=== PATIENT | male | born 1950 | race Caucasian/White ===

== ENCOUNTER 2016-10-18 17:33 | Inpatient (IN) | payer BC, MEDICARE ==
[2016-10-18] VITALS (13 sets, daily range): BP systolic 101–149; BP diastolic 68–93; PULSE 87–140; RESP 17–18; TEMP 97.8; O2SAT 98–100
[~2016-10-18] VITALS: Ht 180.3 cm; Wt 85.8 kg
[2016-10-18] MEDS ORDERED: ADENOSINE IV SOLN 3 MG/ML 2 ML VIAL ONE (17:47)
[2016-10-18] MEDS ORDERED: DILTIAZEM HCL 25 MG/5 ML VIAL ONE (17:52)
[2016-10-18 18:04] LABS: BASOPHIL # 0.1 TH/MM3 (0-0.2); BASOPHIL % 1.3 % (0.0-2.0); EOSINOPHIL # 0.1 TH/MM3 (0-0.4); EOSINOPHIL % 0.7 % (0.0-4.0); HEMO FLAGS DIFF FINAL; LYMPH % 30.4 % (9.0-44.0); LYMPHOCYTE # 2.6 TH/MM3 (1.0-4.8); MEAN CORPUSCULAR HEMOGLOBIN 29.5 PG (27.0-34.0); MEAN CORPUSCULAR HGB CONC 33.1 % (32.0-36.0); MONO % 9.4 % (0.0-8.0); NEUT % 58.2 % (16.0-70.0); PLATELET COUNT 235 TH/MM3 (150-450); RED BLOOD COUNT 5.18 MIL/MM3 (4.50-5.90); RED CELL DISTRIBUTION WIDTH 12.7 % (11.6-17.2); WHITE BLOOD COUNT 8.6 TH/MM3 (4.0-11.0)
[2016-10-18] MEDS ORDERED: DILTIAZEM INJ 125 MG in SODIUM CHLORIDE 0.9% INJ 100 ML IV SCH (18:15)
[2016-10-18] MEDS ORDERED: DILTIAZEM HCL 25 MG/5 ML VIAL IV ONE ×2 (18:15→18:45)
[2016-10-18 18:22] LABS: POTASSIUM 3.6 MEQ/L (3.5-5.1)
[2016-10-18 18:25] LABS: BICARBONATE 27.3 MEQ/L (21.0-32.0)
[2016-10-18 18:27] LABS: PROTHROMBIN TIME - PATIENT 11.1 SEC (9.8-11.6)
[2016-10-18] MEDS ORDERED: LEVO100T5 PO (18:30)
[2016-10-18] MEDS ORDERED: ASPI1TAB69 PO (18:30)
[2016-10-18] MEDS ORDERED: VIAG50TA PO (18:30)
[2016-10-18] MEDS ORDERED: TAMS5CAP PO (18:30)
[2016-10-18] MEDS ORDERED: PRAV40TA2 PO (18:30)
--- NOTE | 2016-10-18 18:40 | PD ---
HPI Chief Complaint: Cardiac Complaint Time Seen by Provider: 18:23 Travel History International Travel<30 days: No Contact w/Intl Traveler<30days: No Traveled to known affect area: No History of Present Illness HPI 66-year-old male complains of epigastric pain and palpitation and dizziness. Patient states that the symptoms started about an hour prior coming to the emergency room. Patient states that he had epigastric discomfort which lasts about 10 minutes and then started having palpitation dizziness subsequently. Patient has history of intermittent palpitation in the past. Patient was seen by control clerk. Patient was found to have thyroid problem. Patient's on levothyroxine. Patient denies any shortness of breath. Patient states that he has history of borderline hypertension in the past. Patient denies any history diabetes or dyslipidemia. Patient is a nonsmoker. Patient denies any history of CAD. Patient denies any chest discomfort now. Patient denies any excessive caffeine intake. Patient took aspirin 81 mg by mouth this morning. PFSH Past Medical History High Cholesterol: Yes Medical other: Yes (ENLARGED PROSTATE) Thyroid Disease: Yes Tetanus Vaccination: > 5 Years Influenza Vaccination: No Family History Family Myocardial Infarction: Yes Social History Alcohol Use: Yes (SOCIAL) Tobacco Use: No Substance Use: No Allergies-Medications (Allergen,Severity, Reaction): Coded Allergies: No Known Allergies (Unverified , 10/18/16) Reported Meds & Prescriptions Reported Meds & Active Scripts Active Reported Viagra (Sildenafil Citrate) 50 Mg Tab 50 Mg PO DIRECTED PRN Aspirin 81 Mg Tabdr 81 Mg PO DAILY Pravastatin 40 Mg Tab 40 Mg PO DAILY Levothyroxine (Levothyroxine Sodium) 100 Mcg Tab 100 Mcg PO DAILY Flomax (Tamsulosin HCl) 0.4 Mg Cap 0.4 Mg PO HS Review of Systems General / Constitutional: No: Fever Eyes: No: Visual changes HENT: No: Headaches Cardiovascular: Positive: Chest Pain or Discomfort, Palpitations Respiratory: No: Shortness of Breath Gastrointestinal: No: Abdominal Pain Genitourinary: No: Dysuria Musculoskeletal: No: Pain Skin: No Rash Neurologic: No: Weakness Psychiatric: No: Depression Endocrine: No: Polydipsia Hematologic/Lymphatic: No: Easy Bruising Physical Exam Narrative GENERAL: Well-nourished, well-developed patient. SKIN: Warm and dry. HEAD: Normocephalic. EYES: No scleral icterus. No injection or drainage. NECK: Supple, trachea midline. No JVD or lymphadenopathy. CARDIOVASCULAR: Irregularly irregular rate and rhythm without murmurs, gallops, or rubs. RESPIRATORY: Breath sounds equal bilaterally. No accessory muscle use. GASTROINTESTINAL: Abdomen soft, non-tender, nondistended. MUSCULOSKELETAL: No cyanosis, or edema. BACK: Nontender without obvious deformity. No CVA tenderness. Neurologic exam normal. Data Data Last Documented VS Vital Signs Date Time Temp Pulse Resp B/P Pulse Ox O2 Delivery O2 Flow Rate FiO2 10/18/16 19:30 98 Nasal Cannula 2 10/18/16 19:29 104 18 122/70 10/18/16 18:55 97.8 Orders Adenosine Inj (Adenocard Inj) (10/18/16 17:47) Complete Blood Count With Diff (10/18/16 17:46) Basic Metabolic Panel (Bmp) (10/18/16 17:46) Ldh Serum (10/18/16 17:46) Ast (Sgot) (10/18/16 17:46) Creatine Kinase (Cpk) (10/18/16 17:46) Troponin I (10/18/16 17:46) Prothrombin Time / Inr (Pt) (10/18/16 17:46) Act Partial Throm Time (Ptt) (10/18/16 17:46) Digoxin (10/18/16 17:46) Electrocardiogram (10/18/16 ) Chest, Single Ap (10/18/16 ) Diltiazem Inj (Cardizem Inj) (10/18/16 17:52) Free T3 (10/18/16 17:58) Thyroxine (T4) (10/18/16 17:58) Thyroid Stimulating Hormone (10/18/16 17:58) Diltiazem Inj (Cardizem Inj) (10/18/16 18:15) Vital Signs (Adult) Q15MX4,Q4H (10/18/16 18:02) ^ [facility] Therapist / Telemetry (10/18/16 18:02) Cardiac Rhythm KODY.Q8H (10/18/16 18:02) ^ Notify Dr: Other (10/18/16 18:02) Diltiazem Inj (Cardizem Inj) (10/18/16 18:15) Sodium Chlor 0.9% 1000 Ml Inj (Ns 1000 M (10/18/16 18:30) Adenosine Inj (Adenocard Inj) (10/18/16 18:45) Adenosine Inj (Adenocard Inj) (10/18/16 18:45) Diltiazem Inj (Cardizem Inj) (10/18/16 18:45) Electrocardiogram (10/18/16 18:13) Labs Laboratory Tests Test 10/18/16 17:45 White Blood Count 8.6 TH/MM3 Red Blood Count 5.18 MIL/MM3 Hemoglobin 15.3 GM/DL Hematocrit 46.0 % Mean Corpuscular Volume 89.0 FL Mean Corpuscular Hemoglobin 29.5 PG Mean Corpuscular Hemoglobin 33.1 % Concent Red Cell Distribution Width 12.7 % Platelet Count 235 TH/MM3 Mean Platelet Volume 8.9 FL Neutrophils (%) (Auto) 58.2 % Lymphocytes (%) (Auto) 30.4 % Monocytes (%) (Auto) 9.4 % Eosinophils (%) (Auto) 0.7 % Basophils (%) (Auto) 1.3 % Neutrophils # (Auto) 5.0 TH/MM3 Lymphocytes # (Auto) 2.6 TH/MM3 Monocytes # (Auto) 0.8 TH/MM3 Eosinophils # (Auto) 0.1 TH/MM3 Basophils # (Auto) 0.1 TH/MM3 CBC Comment DIFF FINAL Differential Comment Prothrombin Time 11.1 SEC Prothromb Time International 1.0 RATIO Ratio Activated Partial 29.0 SEC Thromboplast Time Sodium Level 141 MEQ/L Potassium Level 3.6 MEQ/L Chloride Level 104 MEQ/L Carbon Dioxide Level 27.3 MEQ/L Anion Gap 10 MEQ/L Blood Urea Nitrogen 22 MG/DL Creatinine 1.20 MG/DL Estimat Glomerular Filtration 61 ML/MIN Rate Random Glucose 119 MG/DL Calcium Level 9.0 MG/DL Aspartate Amino Transf 19 U/L (AST/SGOT) Lactate Dehydrogenase 222 U/L Total Creatine Kinase 212 U/L Troponin I 0.06 NG/ML Thyroxine (T4) 12.4 MCG/DL Free Triiodothyronine (T3) 2.45 PG/ML pg/dL Thyroid Stimulating Hormone 1.960 uIU/ML 3rd Gen Digoxin Level 0.1 NG/ML MDM Medical Decision Making Medical Screen Exam Complete: Yes Emergency Medical Condition: Yes Interpretation(s) EKG shows SVT versus atrial flutter with RVR. 195 PM. Chest x-ray shows no acute consolidation. CBC within normal limit. BUN 22. Troponin 0.06. TSH 1.96. T4 12.4. Free T3 2.45. Differential Diagnosis Differential diagnosis including atrial flutter, atrial fibrillation with RVR. Narrative Course 66-year-old male with epigastric discomfort and palpitation. EKG show SVT versus atrial flutter with RVR. Adenosine 6 mg IV given. No response. Adenosine 12 mg IV given. No response. Cardizem 20 g IV boluses 2. The heart rate slowed down and EKG shows atrial fibrillation with RVR. Cardizem drip started. Spoke with Dr. Petty, control clerk. Advised admission to [facility]. Diagnosis Primary Impression: Atrial fibrillation with RVR Additional Impression: Elevated troponin Admitting Information Admitting Physician Requests: Admit Disposition: 01 DISCHARGE HOME Condition: Stable Humphrey Mckeon MD Oct 18, 2016 18:40
[2016-10-18] MEDS ORDERED: ADENOSINE IV SOLN 3 MG/ML 2 ML VIAL IV PUSH ONE ×2 (18:45)
--- NOTE | 2016-10-18 18:59 | RADHPO ---
EXAM DATE/TIME: 10/18/2016 18:21 [facility] COMPARISON: No previous studies available for comparison. INDICATIONS : Cardiac palpitations MEDICAL HISTORY : None. SURGICAL HISTORY : None. ENCOUNTER: Initial ACUITY: 1 day PAIN SCORE: 0/10 LOCATION: Bilateral chest FINDINGS: A single view of the chest demonstrates the lungs to be symmetrically aerated without evidence of mas s, infiltrate or effusion. The cardiomediastinal contours are unremarkable. Osseous structures are intact. CONCLUSION: No acute cardiopulmonary disease demonstrated. Eliud Johnson MD on October 18, 2016 at 18:57 Board Certified Radiologist. This report was verified electronically.
[2016-10-18 19:07] LABS: DIGOXIN 0.1 NG/ML (0.8-2.0)
[2016-10-18] MEDS: SODIUM CHLOR 0.9% 1000 ML INJ 1,000 ML IV SCH (19:28)
[2016-10-18 19:44] LABS: FREE T3 2.45 PG/ML (2.18-3.98); THYROXINE (T4) 12.4 MCG/DL (4.5-12.1)
[2016-10-18] MEDS ORDERED: ASPIRIN 81 MG CHEW TAB TUBE ONE (20:15)
[2016-10-18] MEDS ORDERED: ASPIRIN 81 MG CHEW TAB CHEW ONE (20:15)
[2016-10-18] MEDS ORDERED: SODIUM CHLORIDE 0.9% FLUSH 5 ML FLUSH FLUSH PRN (20:45)
[2016-10-18] MEDS ORDERED: NALOXONE HCL 0.4 MG/ML AMP IV PRN (20:45)
[2016-10-18] MEDS ORDERED: TAMSULOSIN HCL 0.4 MG CAP PO SCH (21:00)
[2016-10-18] MEDS: SODIUM CHLORIDE 0.9% FLUSH 5 ML FLUSH FLUSH SCH (21:00)
[2016-10-19] VITALS (22 sets, daily range): BP systolic 113–143; BP diastolic 68–86; PULSE 60–118; RESP 18; TEMP 97.8–98.3; O2SAT 97–98
[2016-10-19] MEDS ORDERED: HEPARIN-D5W INJ 250 ML IV SCH (02:00)
[2016-10-19] MEDS ORDERED: HEPARIN SODIUM - IV 10,000 UNITS/10 ML VIAL IV ONE (02:00)
--- NOTE | 2016-10-19 05:03 | HHI.HP ---
[facility] Service [place] [facility] Primary Care Physician Non-Staff Admission Diagnosis new onset atrial fibrillation with RVR. Elevated troponin. Diagnoses: Chief Complaint: abdominal pain, indigestion, palpitations Travel History International Travel<30 Days: No Contact w/Intl Traveler <30 Da: No Traveled to Known Affected Are: No History of Present Illness History from patient, ER physician communication, interview of medical records. Patient reported that yesterday around 1 PM after having his lunch, he started feeling some tightness and pain in his abdomen. He pointed to midepigastrium. He thought this was an indigestion of food. However about a few minutes later, he felt palpitations and checked his pulse and noted that this was high. This spontaneously resolved and he even went for a walk with his after this. He stated he walked for about 2 miles. After he returned back, he states the palpitations recurred again. He reports his also came and checked on him and concurred with him that his heart rate was quite high. He was also starting to get some cold clammy skin with diaphoresis. Therefore they decided to come to hospital. Patient denies any recent fever/nausea/vomiting/diarrhea/urinary burning or pain on urination. He denies any hematemesis/hematochezia/melena/hematuria. Patient does report of history of palpitations previously. He states at that time, his doctor had made changes in his thyroid medications in the palpitations episode had stopped. He stated that he was also referred to a monitoring analyst at that time and did have workup done which includes exercise treadmill. Patient does report of walking almost every 3 to 5 miles a day. Patient recently traveled from [place] to [place] by car yesterday. He denies any calf muscle pains. Denies cough asymmetry. Denies any pleuritic chest pain. Patient was noted to be in SVT upon arrival to ER. Next and he was given adenosine. After the rhythm broke, it was noted that this is more of an A. fib with RVR. He was therefore started on adenosine. Once the rhythm broke, it was noted that he was in A. fib. He was then started on Cardizem drip with bolus in ER. Review of Systems Constitutional: COMPLAINS OF: Diaphoretic episodes, DENIES: Fatigue, Fever, Weight gain, Weight loss, Chills, Dizziness Respiratory: DENIES: Apneas, Cough, Snoring, Wheezing, Hemoptysis, Sputum production, Shortness of breath Cardiovascular: COMPLAINS OF: Palpitations, DENIES: Chest pain, Syncope, Dyspnea on Exertion, PND, Lower Extremity Edema, Orthopnea Gastrointestinal: COMPLAINS OF: Abdominal pain, DENIES: Black stools, Bloody stools, Constipation, Diarrhea, Nausea, Vomiting Genitourinary: COMPLAINS OF: Urinary frequency (not since he started flomax 2 yrs ago), DENIES: Urinary incontinence, Urgency, Hematuria, Dysuria Musculoskeletal: COMPLAINS OF: Joint pain, DENIES: Muscle aches, Stiffness Integumentary: DENIES: Abnormal pigmentation, Nail changes, Pruritus, Rash Hematologic/lymphatic: DENIES: Bruising, Lymphadenopathy Neurologic: DENIES: Paresthesias, Seizures, Speech Problems Past Family Social History Past Medical History Hypertension BPH Hyperlipidemia Hypothyroidism 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 Further head also kinds of medical problems including coronary artery disease, BPH, artery +. Social History Denies smoking/alcohol abuse/drug abuse Physical Exam Vital Signs Vital Signs Date Time Temp Pulse Resp B/P Pulse Ox O2 Delivery O2 Flow Rate FiO2 10/19/16 02:32 94 18 98 Nasal Cannula 2 10/19/16 02:00 94 18 143/69 98 10/19/16 01:01 89 18 128/72 98 10/19/16 00:05 96 18 137/78 98 10/18/16 23:03 89 18 116/77 98 10/18/16 22:05 94 18 126/74 98 10/18/16 21:00 92 18 126/84 98 10/18/16 20:05 104 18 127/82 98 10/18/16 19:30 98 Nasal Cannula 2 10/18/16 19:29 104 18 122/70 98 Nasal Cannula 2 10/18/16 18:55 97.8 119 17 132/73 100 Nasal Cannula 2 10/18/16 18:30 88 117/68 10/18/16 18:24 87 149/75 10/18/16 18:20 88 17 101/74 10/18/16 18:15 138 17 124/71 99 Nasal Cannula 2 10/18/16 18:10 138 17 127/93 100 Nasal Cannula 2 10/18/16 18:05 112 17 116/75 99 Nasal Cannula 2 10/18/16 18:04 100 Nasal Cannula 2 10/18/16 18:00 140 17 134/79 100 Nasal Cannula 2 Physical Exam GENERAL: This is a well-nourished, well-developed patient, in no apparent distress. SKIN: No rashes, ecchymoses or lesions. Cool and dry. HEAD: Atraumatic. Normocephalic. No temporal or scalp tenderness. EYES: No scleral icterus. No injection or drainage. ENT: Nose without bleeding, purulent drainage or septal hematoma.Airway patent. NECK: Trachea midline. No JVD CARDIOVASCULAR: Regular rate and rhythm without murmurs, gallops, or rubs. RESPIRATORY: Clear to auscultation. Breath sounds equal bilaterally. No wheezes , rales, or rhonchi. GASTROINTESTINAL: Abdomen soft, non-tender, nondistended. s. No guarding. MUSCULOSKELETAL: Extremities without clubbing, cyanosis, or edema. No calf tenderness. NEUROLOGICAL: Awake and alert. Motor and sensory grossly within normal limits. Normal speech. Laboratory Laboratory Tests Test 10/18/16 10/19/16 17:45 00:00 White Blood Count 8.6 Red Blood Count 5.18 Hemoglobin 15.3 Hematocrit 46.0 Mean Corpuscular Volume 89.0 Mean Corpuscular Hemoglobin 29.5 Mean Corpuscular Hemoglobin 33.1 Concent Red Cell Distribution Width 12.7 Platelet Count 235 Mean Platelet Volume 8.9 Neutrophils (%) (Auto) 58.2 Lymphocytes (%) (Auto) 30.4 Monocytes (%) (Auto) 9.4 Eosinophils (%) (Auto) 0.7 Basophils (%) (Auto) 1.3 Neutrophils # (Auto) 5.0 Lymphocytes # (Auto) 2.6 Monocytes # (Auto) 0.8 Eosinophils # (Auto) 0.1 Basophils # (Auto) 0.1 CBC Comment DIFF FINAL Differential Comment Prothrombin Time 11.1 Prothromb Time International 1.0 Ratio Activated Partial 29.0 Thromboplast Time Sodium Level 141 Potassium Level 3.6 Chloride Level 104 Carbon Dioxide Level 27.3 Anion Gap 10 Blood Urea Nitrogen 22 Creatinine 1.20 Estimat Glomerular Filtration 61 Rate Random Glucose 119 Calcium Level 9.0 Aspartate Amino Transf 19 (AST/SGOT) Lactate Dehydrogenase 222 Total Creatine Kinase 212 181 Troponin I 0.06 0.51 Thyroxine (T4) 12.4 Free Triiodothyronine (T3) 2.45 pg/dL Thyroid Stimulating Hormone 1.960 3rd Gen Digoxin Level 0.1 Result Diagram: 10/18/16 1745 10/18/16 1745 Imaging Last 48 hours Impressions Chest X-Ray 10/18/16 0000 Signed Impressions: Service Date/Time: Tuesday, October 18, 2016 18:21 - CONCLUSION: No acute cardiopulmonary disease demonstrated. Eliud Johnson MD Assessment and Plan Problem List: (1) Atrial fibrillation with RVR ICD Code: I48.91 Status: Acute (2) Elevated troponin ICD Code: R79.89 Status: Acute Assessment and Plan Impression: A. fib with RVR Epigastric painetiology unclear. Possible angina equivalent. Seems to precede the episode of A. fib with RVR. Recent prolonged travel from [place] Plan: Serial cardiac enzymes and EKGs. Patient's case was discussed with cardiology on-call by ER physician. Patient was started on Cardizem drip. Since the second cardiac enzymes is also going, I have also started patient on heparin drip. Obtain VQ scan to rule out pulmonary embolism. Obtain echocardiogram for LV EF/wall motion abnormalities/ Patient's TSH was checked. Within normal limits. Resume home dose of Synthroid. DVT prophylaxiswith Lovenox. GI prophylaxis on pantoprazole. Discussed Condition With Patient, ER physician Physician Certification 2 Midnight Certification Type: Admission for Inpatient Services Order for Inpatient Services The services are ordered in accordance with Medicare regulations or non- Medicare payer requirements, as applicable. In the case of services not specified as inpatient-only, they are appropriately provided as inpatient services in accordance with the 2-midnight benchmark. Estimated LOS (days): 2 days is the estimated time the patient will need to remain in the hospital, assuming treatment plan goals are met and no additional complications. Post-Hospital Plan: Home Ran Gill MD Oct 19, 2016 05:03
[2016-10-19] MEDS ORDERED: LEVOTHYROXINE SODIUM 100 MCG TAB PO SCH (06:00)
[2016-10-19] MEDS ORDERED: HEPARIN SODIUM - IV 10,000 UNITS/10 ML VIAL IV PRN ×2 (08:00)
[2016-10-19 08:14] LABS: AUTOMATED NEUTROPHIL # 4.3 TH/MM3 (1.8-7.7); BASOPHIL % 0.6 % (0.0-2.0); EOSINOPHIL % 0.2 % (0.0-4.0); HEMATOCRIT 46.6 % (39.0-51.0); HEMO FLAGS DIFF FINAL; LYMPH % 21.7 % (9.0-44.0); LYMPHOCYTE # 1.3 TH/MM3 (1.0-4.8); MEAN CELL VOLUME 88.8 FL (80.0-100.0); MEAN CORPUSCULAR HGB CONC 33.8 % (32.0-36.0); MONO % 7.6 % (0.0-8.0); NEUT % 69.9 % (16.0-70.0); PLATELET COUNT 209 TH/MM3 (150-450); RED BLOOD COUNT 5.24 MIL/MM3 (4.50-5.90); RED CELL DISTRIBUTION WIDTH 13.7 % (11.6-17.2); WHITE BLOOD COUNT 6.2 TH/MM3 (4.0-11.0)
[2016-10-19] MEDS: SODIUM CHLORIDE 0.9% FLUSH 5 ML FLUSH FLUSH SCH (08:30)
[2016-10-19 08:37] LABS: BICARBONATE 25.6 MEQ/L (21.0-32.0)
[2016-10-19] MEDS ORDERED: PRAVASTATIN SOD 40 MG TAB PO SCH (09:00)
[2016-10-19] MEDS ORDERED: ASPIRIN EC 81 MG TABEC PO SCH (09:00)
--- NOTE | 2016-10-19 09:23 | PD.CONS ---
HPI Service CV Consult Requested By Reason for Consult afib Primary Care Physician Non-Staff History of Present Illness Here with h/o palpitations who sees a veterans contact representative in [place] admitted with A- fib RVR. He states that yesterday after eating lunch he had 5 minutes of chest pressure followed by palpitations. The palpitations continued to come and go. Then it eventually became constant and he presented to the ER. He denies any shortness of breath or palpitations (George Lindsay) Review of Systems Consitutional: DENIES: Fatigue, Fever, Chills, Weight gain, Weight loss Eyes: DENIES: Amaurosis Fugax, Change in vision HEENT: DENIES: Lightheadedness, Change in hearing Respiratory: DENIES: See HPI, Cough, Snoring, Shortness of breath, Wheezing, Sputum production Cardiovascular: COMPLAINS OF: See HPI Gastrointestinal: DENIES: Nausea, Vomiting, Change in bowel habits, Reflux, Bloody stools, Melena Genitourinary: DENIES: Urinary incontinence, Difficulty voiding Integumentary: DENIES: Rash Neurologic: DENIES: Tingling or numbness, Memory problems, Poor Balance, Stroke symptoms Musculoskeletal: DENIES: Joint pain, Muscle pain, Limited range of motion, Back pain Psychiatric: DENIES: Anxiety, Depression, Sleep disturbances Hematologic: DENIES: Bruising tendencies, Bleeding tendencies Endocrine: DENIES: Weight gain, Weight loss, Thyroid disease (George Lindsay ) Past Family Social History Allergies: Coded Allergies: No Known Allergies (Unverified , 10/18/16) Past Medical History Hypertension BPH Hyperlipidemia Hypothyroidism 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 Past Surgical History Left knee arthroscopic surgery left shoulder arthroscopic surgery Squamous cell cancer and basal cell carcinoma of the skin removal Left finger thumb surgery for the infection Reported Medications ASA 81 mg daily pravastatin 40 mg daily Family History noncontributory Social History Denies smoking/alcohol abuse/drug abuse (George Lindsay) Physical Exam Vital Signs Vital Signs Date Time Temp Pulse Resp B/P Pulse Ox O2 Delivery O2 Flow Rate FiO2 10/19/16 08:34 98.1 72 18 122/70 97 10/19/16 08:27 98.1 72 18 122/70 97 10/19/16 08:00 110 10/19/16 07:00 70 10/19/16 06:00 102 10/19/16 05:00 112 10/19/16 04:00 118 10/19/16 03:00 94 10/19/16 02:45 97.8 108 18 137/86 97 10/19/16 02:32 94 18 98 Nasal Cannula 2 10/19/16 02:00 94 18 143/69 98 10/19/16 01:01 89 18 128/72 98 10/19/16 00:05 96 18 137/78 98 10/18/16 23:03 89 18 116/77 98 10/18/16 22:05 94 18 126/74 98 10/18/16 21:00 92 18 126/84 98 10/18/16 20:05 104 18 127/82 98 10/18/16 19:30 98 Nasal Cannula 2 10/18/16 19:29 104 18 122/70 98 Nasal Cannula 2 10/18/16 18:55 97.8 119 17 132/73 100 Nasal Cannula 2 10/18/16 18:30 88 117/68 10/18/16 18:24 87 149/75 10/18/16 18:20 88 17 101/74 10/18/16 18:15 138 17 124/71 99 Nasal Cannula 2 10/18/16 18:10 138 17 127/93 100 Nasal Cannula 2 10/18/16 18:05 112 17 116/75 99 Nasal Cannula 2 10/18/16 18:04 100 Nasal Cannula 2 10/18/16 18:00 140 17 134/79 100 Nasal Cannula 2 Physical Exam GENERAL: Well-nourished, well-developed patient in no apparent distress. NECK: No JVD. No carotid bruit. CARDIOVASCULAR: Regular rate and rhythm. S1/S2 no murmur, rub, or gallop. RESPIRATORY: No accessory muscle use. Clear to auscultation. Breath sounds equal bilaterally. GASTROINTESTINAL: Abdomen soft, non-tender, nondistended. MUSCULOSKELETAL: Extremities without clubbing, cyanosis, or edema. Laboratory Laboratory Tests Test 10/18/16 10/19/16 10/19/16 17:45 00:00 07:40 White Blood Count 8.6 6.2 Red Blood Count 5.18 5.24 Hemoglobin 15.3 15.7 Hematocrit 46.0 46.6 Mean Corpuscular Volume 89.0 88.8 Mean Corpuscular Hemoglobin 29.5 30.0 Mean Corpuscular Hemoglobin 33.1 33.8 Concent Red Cell Distribution Width 12.7 13.7 Platelet Count 235 209 Mean Platelet Volume 8.9 8.7 Neutrophils (%) (Auto) 58.2 69.9 Lymphocytes (%) (Auto) 30.4 21.7 Monocytes (%) (Auto) 9.4 7.6 Eosinophils (%) (Auto) 0.7 0.2 Basophils (%) (Auto) 1.3 0.6 Neutrophils # (Auto) 5.0 4.3 Lymphocytes # (Auto) 2.6 1.3 Monocytes # (Auto) 0.8 0.5 Eosinophils # (Auto) 0.1 0.0 Basophils # (Auto) 0.1 0.0 CBC Comment DIFF FINAL DIFF FINAL Differential Comment Prothrombin Time 11.1 Prothromb Time International 1.0 Ratio Activated Partial 29.0 Thromboplast Time Sodium Level 141 140 Potassium Level 3.6 4.0 Chloride Level 104 104 Carbon Dioxide Level 27.3 25.6 Anion Gap 10 10 Blood Urea Nitrogen 22 11 Creatinine 1.20 0.74 Estimat Glomerular Filtration 61 106 Rate Random Glucose 119 104 Calcium Level 9.0 8.3 Aspartate Amino Transf 19 (AST/SGOT) Lactate Dehydrogenase 222 Total Creatine Kinase 212 181 173 Troponin I 0.06 0.51 0.42 Thyroxine (T4) 12.4 Free Triiodothyronine (T3) 2.45 pg/dL Thyroid Stimulating Hormone 1.960 3rd Gen Digoxin Level 0.1 (George Lindsay) Result Diagram: 10/19/16 0740 10/19/16 0740 Assessment and Plan Problem List: (1) Atrial fibrillation with RVR Assessment and Plan: Paroxysmal, now in SR. Get 2D echo. CHADS-VASC is 0, increase ASA to 325 mg daily (2) Elevated troponin Assessment and Plan: Troponin likely demand mediated with his tachycardia, Chest pain - get Lexiscan SPECT and go from there (George Lindsay) Assessment and Plan CP symptoms suggestive of angina. + troponin It may be demand mediated due to tachycardia, but he needs ischemic workup. Unfortunately, he had V/Q scan today and lexiscan cannot be done until due to rate of nuclear isotope degradation. After discussion with patient, we will proceed with [facility] for expedited and definitive diagnosis. (Radhames Petty MD) George Lindsay Oct 19, 2016 09:23 Radhames Petty MD Oct 19, 2016 14:24
[2016-10-19] MEDS ORDERED: ATROPINE SULFATE 1 MG/10 ML SYRINGE ONE (10:00)
[2016-10-19] MEDS ORDERED: EPINEPHrine HCL (1:10,000) 1 MG/10 ML SYRINGE ONE (10:01)
--- NOTE | 2016-10-19 10:46 | EKG ---
Date Performed: 10/18/2016 Time Performed: 23:50:44 PTAGE: 66 years EKG: Atrial fibrillation Septal T wave changes are nonspecific Abnormal ECG Compared to prior tr acing no significant change PREVIOUS TRACING : 10/18/2016 18.13 DOCTOR: Rafa Roman Interpretating Date/Time 10/19/2016 10:43:37
--- NOTE | 2016-10-19 11:58 | EKG ---
Date Performed: 10/18/2016 Time Performed: 17:34:38 PTAGE: 66 years EKG: Atrial flutter with 2:[address]-T changes suggest myocardial injury/ischemi a Abnormal ECG NO PREVIOUS TRACING DOCTOR: Rafa Roman Interpretating Date/Time 10/19/2016 11:58:12
--- NOTE | 2016-10-19 11:58 | EKG ---
Date Performed: 10/18/2016 Time Performed: 18:13:42 PTAGE: 66 years EKG: Atrial fibrillation Extensive ST-T changes are nonspecific Compared to previous tracing atr ial fibrillation has replaced atrial flutter Abnormal ECG PREVIOUS TRACING : 10/18/2016 17.34 DOCTOR: Rafa Roman Interpretating Date/Time 10/19/2016 11:57:50
--- NOTE | 2016-10-19 12:12 | RADRPT ---
EXAM DATE/TIME: 10/19/2016 11:13 [facility] COMPARISON: CHEST SINGLE AP, October 18, 2016, 18:21. INDICATIONS : Abdominal pain, palpitations and diaphoresis. Atrial fibrillation. DOSE: 8.5 mCi Tc99m MAA IV 0.72 mCi Tc99m DTPA aerosol MEDICAL HISTORY : Hypercholesterolemia. SURGICAL HISTORY : Knee. Shoulder. ENCOUNTER: Initial ACUITY: 2 days PAIN SCALE: 0/10 LOCATION: chest TECHNIQUE: Following five minutes of tidal breathing of DTPA aerosol, planar images of the lungs were performed in eight projections. The patient was then injected with MAA, and eight-view perfusion scan was perf ormed. FINDINGS: There is a homogeneous pattern of aerosol delivery to the periphery of both lungs. No focal ventilat ory defects are seen. The perfusion lung scan demonstrates a homogenous pattern of uptake in both lungs. No segmental or s ubsegmental defects are seen. CONCLUSION: Low probability for pulmonary embolus. Eliud Oconnell MD on October 19, 2016 at 12:09 Board Certified Radiologist. This report was verified electronically.
[2016-10-19] MEDS: SODIUM CHLOR 0.9% 1000 ML INJ 1,000 ML IV SCH (14:05)
[2016-10-19] MEDS ORDERED: HEPARIN-NS/PF INJ 500 ML ONE (14:53)
[2016-10-19] MEDS ORDERED: MIDAZOLAM HCL 2 MG/2 ML VIAL ONE (15:14)
[2016-10-19] MEDS ORDERED: HEPARIN SODIUM - IV 10,000 UNITS/10 ML VIAL ONE (15:15)
[2016-10-19] MEDS ORDERED: IODIXANOL 320 MG/ML 100 ML VIAL (for Cath Lab) OTHER ONE (15:30)
[2016-10-19] MEDS ORDERED: MISC INFORMATION XX ONE (15:45)
--- NOTE | 2016-10-19 17:25 | MA ---
cc: VENTURA PABON DATE: 10/19/2016 INDICATION [id number] CT. PROCEDURE PERFORMED 1. Fluoroscopy interpretation 2. Left heart catheterization 3. Coronary angiography. Method; risks, benefits and alternatives discussed with the patient. The patient understood and consented to the procedure. The patient brought the catheterization lab and placed on the catheterization table. Right wrist was prepped and draped sterile fashion. Right wrist was anesthetized 2% lidocaine. Right radial artery was cannulated 6-[place] center sheath was placed out difficulty. Left heart catheterization; 6-[place] JR-5 catheter was advanced across the aortic valve without difficulty intra into the hemodynamics measured at 124, 7 mmHg. CORONARY ANGIOGRAPHY Cycle left coronary circulation was selectively engaged with a 6-[place] JL-3.5 catheter. Right coronary circulation selectively engaged with 6-[place] JR-5 catheter. His coronary anatomy; 1. Left main coronary angiographically normal. 2. Left anterior descending coronary has minimal luminal irregularities distally but otherwise angiographically normal. 3. Left circumflex angiographically normal gives rise to an obtuse marginal branch which is normal. 4. Right coronary is dominant vessel giving rise to a posterior descending coronary angiographically normal. CONCLUSIONS: 1. Angiographically normal coronary arteries. 2. Normal left-sided filling pressures. PLAN I suspect that the slight troponin elevation is secondary to the tachycardia and is a type 2 to demand mediated event. From a cardiac perspective. We will continue with oral either beta slade or calcium channel slade. He can follow up in the outpatient setting. MD NATALIE Abreu/dewey /3:34 PM /5:21 PM
[2016-10-19] MEDS ORDERED: METO25TA3 PO ×2 (18:08→18:42)
[2016-10-19] MEDS ORDERED: Aspirin Ec PO (18:08)
--- NOTE | 2016-10-19 18:17 | HHI.PR ---
Subjective Remarks Follow up for Atrial flutter with RVR. Mr. Chiang was seen/examined after his VQ scan which was low probability. Patient is doing well. No chest pain, SOB, fever, chills. Denies any palpitations. He later on underwent cardiac cath by Dr. Petty. No significant CAD found. Dr. Petty recommended beta slade or CCB and outpatient follow up. Objective Vitals Vital Signs Date Time Temp Pulse Resp B/P Pulse Ox O2 Delivery O2 Flow Rate FiO2 10/19/16 18:00 72 10/19/16 17:00 60 10/19/16 16:00 75 10/19/16 15:00 70 10/19/16 15:00 98.3 81 18 143/73 97 10/19/16 14:00 84 10/19/16 13:00 72 10/19/16 12:00 72 10/19/16 11:00 98.3 71 18 113/68 98 10/19/16 11:00 75 10/19/16 10:00 79 10/19/16 09:00 108 10/19/16 08:34 98.1 72 18 122/70 97 10/19/16 08:27 98.1 72 18 122/70 97 10/19/16 08:00 110 10/19/16 07:00 70 10/19/16 06:00 102 10/19/16 05:00 112 10/19/16 04:00 118 10/19/16 03:00 94 10/19/16 02:45 97.8 108 18 137/86 97 10/19/16 02:32 94 18 98 Nasal Cannula 2 10/19/16 02:00 94 18 143/69 98 10/19/16 01:01 89 18 128/72 98 10/19/16 00:05 96 18 137/78 98 10/18/16 23:03 89 18 116/77 98 10/18/16 22:05 94 18 126/74 98 10/18/16 21:00 92 18 126/84 98 10/18/16 20:05 104 18 127/82 98 10/18/16 19:30 98 Nasal Cannula 2 10/18/16 19:29 104 18 122/70 98 Nasal Cannula 2 10/18/16 18:55 97.8 119 17 132/73 100 Nasal Cannula 2 1/16/17 18:30 88 117/68 10/18/16 18:24 87 149/75 10/18/16 18:20 88 17 101/74 10/18/16 18:15 138 17 124/71 99 Nasal Cannula 2 I/O 10/18/16 10/18/16 10/18/16 10/19/16 10/19/16 10/19/16 07:00 15:00 23:00 07:00 15:00 23:00 Intake Total 390 ml 680 ml Output Total 300 ml Balance 90 ml 680 ml Intake Oral 120 ml 480 ml IV Total 270 ml 200 ml Output Urine Total 300 ml # Voids 5 4 Result Diagram: 10/19/16 0740 10/19/16 0740 Imaging Last Impressions Lung Scan-VQ Nuclear Medicine 10/19/16 0000 Signed Impressions: Service Date/Time: Wednesday, October 19, 2016 11:13 - CONCLUSION: Low probability for pulmonary embolus. Eliud Oconnell MD Chest X-Ray 10/18/16 0000 Signed Impressions: Service Date/Time: Tuesday, October 18, 2016 18:21 - CONCLUSION: No acute cardiopulmonary disease demonstrated. Eliud Johnson MD Objective Remarks GENERAL: AOX3, NAD. SKIN: Warm and dry. HEAD: Normocephalic. EYES: No scleral icterus. No injection or drainage. NECK: Supple, trachea midline. No JVD or lymphadenopathy. CARDIOVASCULAR: Regular rate and rhythm without murmurs, gallops, or rubs. RESPIRATORY: Breath sounds equal bilaterally. No accessory muscle use. GASTROINTESTINAL: Abdomen soft, non-tender, nondistended. MUSCULOSKELETAL: No cyanosis, or edema. BACK: Nontender without obvious deformity. No CVA tenderness. Procedures Cath 10/19/2016 CONCLUSIONS: 1. Angiographically normal coronary arteries. 2. Normal left-sided filling pressures. PLAN I suspect that the slight troponin elevation is secondary to the tachycardia and is a type 2 to demand mediated event. From a cardiac perspective. We will continue with oral either beta slade or calcium channel slade. He can follow up in the outpatient setting. A/P Problem List: (1) Atrial fibrillation with RVR ICD Code: I48.91 Status: Acute (2) Elevated troponin ICD Code: R79.89 Status: Acute Assessment and Plan Mr. Chiang was admitted due to palpitations, EKG revealed Atrial flutter with RVR. Patient was started on Cardizem drip. He underwent VQ scan because patient recently traveled long distance by car and VQ scan showed low probability for PE. Patient underwent cardiac cath today as well. - Tachycardia induced troponin elevation - Asymptomatic. No chest pain, N/V, diaphoresis. - Cath does not indicate any significant CAD - Dr. Petty recommends PO BB or CCB. - Will start patient on Metoprolol 12.5mg Q12hrs - Follow up with Dr. Petty in 1-2 weeks. - Atrial flutter with RVR. Currently in NSR and regular rate. - Continue beta slade. - [id number] score 0. We will continue Aspirin 325mg Qday. Full code. Discharge patient to home Condition on discharge: Improved Heart healthy Diet as tolerated Ad Melissa activity Rx written: - Aspirin 325mg Qday - Metoprolol 12.5mg Q12 hrs (Hold if heart rate < 60) Follow-up with primary care physician within one week and Cardiology within 1-2 weeks. Mihaela Truong DO Oct 19, 2016 18:17
--- NOTE | 2016-10-20 07:54 | EKG ---
Date Performed: 10/19/2016 Time Performed: 07:35:52 PTAGE: 66 years EKG: Sinus rhythm Septal T wave changes are nonspecific Compared to previous tracing, patient is no longer in atrial f ibrillation. Borderline ECG PREVIOUS TRACING : 10/18/2016 23.50 DOCTOR: Rafa Roman Interpretating Date/Time 10/20/2016 08:07:52
[2016-10-20] MEDS ORDERED: ASPIRIN EC 325 MG TABEC PO SCH (09:00)
== END 2016-10-19 19:00 | disposition home or self-care (01) | DRG 282 ==
LOC: PHED 17:33 → PHEDA 20:46 → HCIS 10-19 02:55
PROVIDERS: ADMIT Hospitalist; ATTEND Hospitalist
PROC: B2111ZZ Fluoroscopy of Multiple Coronary Arteries using Low Osmolar Contrast (ICD-10-PCS; 2016-10-19)
PROC: 4A023N7 Measurement of Cardiac Sampling and Pressure, Left Heart, Percutaneous Approach (ICD-10-PCS; principal; 2016-10-19 13:45)
DX: I48.0 Paroxysmal atrial fibrillation (principal); I21.4 Non-ST elevation (NSTEMI) myocardial infarction; I10 Essential (primary) hypertension; E78.5 Hyperlipidemia, unspecified; E03.9 Hypothyroidism, unspecified; I48.92 Unspecified atrial flutter; Z85.828 Personal history of other malignant neoplasm of skin
CPT/HCPCS: 71010; 78582; 80048; 80162; 82550; 83615; 84436; 84443; 84450; 84481; 84484; 85025; 85610; 85730; 86850; 86900; 86901; 93005; 93454; 96361; 96365; 96375; 96376; A9540; A9567; C1769; C1893; J0153; J0171; J0461; J1644; J2250; J7030; Q9967

== ENCOUNTER 2016-10-21 22:54 | Emergency (ER) | payer BC ==
[~2016-10-21 22:54] MED LIST: Aspirin Ec PO; LEVO100T5 PO; METO25TA3 PO; PRAV40TA2 PO; TAMS5CAP PO
[2016-10-21 22:55] VITALS: BP 120/84; PULSE 165; RESP 20; TEMP 97.8; O2SAT 95
[2016-10-21 22:59] VITALS: BP 142/80; PULSE 97; RESP 16; TEMP 97.9; O2SAT 95
[2016-10-21] MEDS ORDERED: METOPROLOL TARTRATE 25 MG TAB PO ONE (23:15)
[2016-10-21] MEDS ORDERED: SODIUM CHLORIDE 0.9% FLUSH 5 ML FLUSH IVF PRN (23:15)
[2016-10-21 23:19] VITALS: PULSE 90
--- NOTE | 2016-10-21 23:19 | PD ---
HPI Chief Complaint: Cardiac Complaint Time Seen by Provider: 23:01 Travel History International Travel<30 days: No Contact w/Intl Traveler<30days: No Traveled to known affect area: No History of Present Illness HPI The patient is a 66-year-old male who presents emergency department for palpitations. The patient states he had palpitations several days ago with chest pain, was evaluated in the emergency department and noted to have an elevated troponin. The patient had a cardiac catheterization by the seed analysis laboratory assistant, Dr. Harrison, which was negative. The patient was discharged home on metoprolol 12.5 mg twice a day and has an appointment at the end of the month to see the seed analysis laboratory assistant. However, earlier today developed symptoms that included lightheadedness, dizziness, palpitations, and a racing heart. The patient states his symptoms have currently resolved, however, when he was symptomatic his heart rate was near 150. The patient denies any current chest, shortness breath, nausea, vomiting, or abdominal pain. The patient is from [place] and does not have a local primary physician. The patient is currently taking aspirin 325 mg daily as anticoagulation with atrial fibrillation. PFSH Past Medical History Atrial Fibrillation: Yes Heart Rhythm Problems: Yes (palpitations) Cancer: Yes (skin cancer removal) Cardiovascular Problems: Yes High Cholesterol: Yes Genitourinary: Yes Musculoskeletal: Yes (torn meniscus & rotator cuff surgery) Neurologic: No Respiratory: No Thyroid Disease: Yes Influenza Vaccination: Yes Social History Alcohol Use: Yes (SOCIAL) Tobacco Use: No Substance Use: No Allergies-Medications (Allergen,Severity, Reaction): Coded Allergies: No Known Allergies (Unverified , 10/21/16) Reported Meds & Prescriptions Reported Meds & Active Scripts Active Metoprolol Tartrate 25 Mg Tab 12.5 Mg PO BID 30 Days [Aspirin Ec] 325 MG Tabec 325 Mg PO DAILY Reported Pravastatin 40 Mg Tab 40 Mg PO DAILY Levothyroxine (Levothyroxine Sodium) 100 Mcg Tab 100 Mcg PO DAILY Flomax (Tamsulosin HCl) 0.4 Mg Cap 0.4 Mg PO HS Review of Systems Except as stated in HPI: all other systems reviewed are Neg General / Constitutional: No: Fever HENT: Positive: Lightheadedness Cardiovascular: Positive: Palpitations, Irregular Rhythm, Tachycardia, No: Chest Pain or Discomfort, Diaphoresis Respiratory: No: Shortness of Breath Gastrointestinal: No: Nausea, Vomiting, Abdominal Pain Musculoskeletal: No: Edema Neurologic: Positive: Dizziness Physical Exam Narrative GENERAL: Awake, alert, pleasant 66-year-old male who appears his stated age and is in no acute respiratory distress. SKIN: Warm and dry. HEAD: Atraumatic. Normocephalic. EYES: No injection or drainage. ENT: No nasal bleeding or discharge. Mucous membranes pink and moist. NECK: Trachea midline. No JVD. CARDIOVASCULAR: Regular rate and rhythm. No murmur appreciated. Heart rate in the 90s. RESPIRATORY: No accessory muscle use. Clear to auscultation. Breath sounds equal bilaterally. MUSCULOSKELETAL: No obvious deformities. No clubbing. No cyanosis. No edema. NEUROLOGICAL: Awake and alert. No obvious cranial nerve deficits. Motor grossly within normal limits. Normal speech. PSYCHIATRIC: Appropriate mood and affect; insight and judgment normal. Data Data Last Documented VS Vital Signs Date Time Temp Pulse Resp B/P Pulse Ox O2 Delivery O2 Flow Rate FiO2 10/21/16 23:19 90 10/21/16 23:02 96 Room Air 10/21/16 22:59 97.9 16 142/80 Orders Electrocardiogram (10/21/16 23:10) Basic Metabolic Panel (Bmp) (10/21/16 23:10) Complete Blood Count With Diff (10/21/16 23:10) Magnesium (Mg) (10/21/16 23:10) Ecg Monitoring (10/21/16 23:10) Iv Access Insert/Monitor (10/21/16 23:10) Oximetry (10/21/16 23:10) Oxygen Administration (10/21/16 23:10) Sodium Chloride 0.9% Flush (Ns Flush) (10/21/16 23:15) Metoprolol Tartrate (Lopressor) (10/21/16 23:15) Labs Laboratory Tests Test 10/21/16 23:13 White Blood Count 6.2 TH/MM3 Red Blood Count 4.90 MIL/MM3 Hemoglobin 14.9 GM/DL Hematocrit 43.8 % Mean Corpuscular Volume 89.3 FL Mean Corpuscular Hemoglobin 30.4 PG Mean Corpuscular Hemoglobin 34.1 % Concent Red Cell Distribution Width 13.8 % Platelet Count 188 TH/MM3 Mean Platelet Volume 9.0 FL Neutrophils (%) (Auto) 61.0 % Lymphocytes (%) (Auto) 27.2 % Monocytes (%) (Auto) 8.3 % Eosinophils (%) (Auto) 3.0 % Basophils (%) (Auto) 0.5 % Neutrophils # (Auto) 3.8 TH/MM3 Lymphocytes # (Auto) 1.7 TH/MM3 Monocytes # (Auto) 0.5 TH/MM3 Eosinophils # (Auto) 0.2 TH/MM3 Basophils # (Auto) 0.0 TH/MM3 CBC Comment DIFF FINAL Differential Comment Sodium Level 142 MEQ/L Potassium Level 3.5 MEQ/L Chloride Level 106 MEQ/L Carbon Dioxide Level 28.0 MEQ/L Anion Gap 8 MEQ/L Blood Urea Nitrogen 19 MG/DL Creatinine 0.98 MG/DL Estimat Glomerular Filtration 77 ML/MIN Rate Random Glucose 130 MG/DL Calcium Level 8.5 MG/DL Magnesium Level 2.1 MG/DL [facility] Medical Decision Making Medical Screen Exam Complete: Yes Emergency Medical Condition: Yes Medical Record Reviewed: Yes Interpretation(s) EKG reveals normal sinus rhythm with a rate in 97. Nonspecific ST changes. Laboratory Tests Test 10/21/16 23:13 White Blood Count 6.2 TH/MM3 Red Blood Count 4.90 MIL/MM3 Hemoglobin 14.9 GM/DL Hematocrit 43.8 % Mean Corpuscular Volume 89.3 FL Mean Corpuscular Hemoglobin 30.4 PG Mean Corpuscular Hemoglobin 34.1 % Concent Red Cell Distribution Width 13.8 % Platelet Count 188 TH/MM3 Mean Platelet Volume 9.0 FL Neutrophils (%) (Auto) 61.0 % Lymphocytes (%) (Auto) 27.2 % Monocytes (%) (Auto) 8.3 % Eosinophils (%) (Auto) 3.0 % Basophils (%) (Auto) 0.5 % Neutrophils # (Auto) 3.8 TH/MM3 Lymphocytes # (Auto) 1.7 TH/MM3 Monocytes # (Auto) 0.5 TH/MM3 Eosinophils # (Auto) 0.2 TH/MM3 Basophils # (Auto) 0.0 TH/MM3 CBC Comment DIFF FINAL Differential Comment Sodium Level 142 MEQ/L Potassium Level 3.5 MEQ/L Chloride Level 106 MEQ/L Carbon Dioxide Level 28.0 MEQ/L Anion Gap 8 MEQ/L Blood Urea Nitrogen 19 MG/DL Creatinine 0.98 MG/DL Estimat Glomerular Filtration 77 ML/MIN Rate Random Glucose 130 MG/DL Calcium Level 8.5 MG/DL Magnesium Level 2.1 MG/DL Differential Diagnosis Differential diagnoses includes atrial fibrillation with RVR, hypokalemia, hyperkalemia, hypomagnesemia, congestive heart failure, pulmonary embolism, hyperthyroidism. Narrative Course IV was established, labs are drawn and sent, and the patient was placed on cardiac telemetry monitoring and continuous pulse oximetry monitoring. EKG was ordered and interpreted. The patient's EKG revealed normal sinus rhythm with a rate in the 90s, the patient was no longer symptomatic. I reviewed the patient' s EMR, he had a cardiac catheterization several days ago by Dr. harrison which was negative. The patient also had a VQ scan which was negative for pulmonary embolism. The patient is on low-dose beta slade total 12.5 mg orally twice a day, he was administered metoprolol 25 mg orally in the emergency department and we will increase his dose to 25 mg twice a day. The patient was clamped on telemetry monitoring, his heart rate came down into the 70s, no further evidence of atrial fibrillation. I'll elect lites unremarkable. Patient medically cleared to be reevaluated by his seed analysis laboratory assistant on an outpatient basis. Patient's Lopressor will be increased to 25 mg twice a day. Diagnosis Primary Impression: Paroxysmal atrial fibrillation with rapid ventricular response Patient Instructions: General Instructions Additional Instructions: Follow-up with your seed analysis laboratory assistant. Return if symptoms worsen or progress. Monitor heart rate. Med/Other Pt SpecificInfo: Prescription(s) given, Existing Med Changed ( change Lopressor from 12.5 mg to 25 mg twice a day) Scripts Metoprolol Tartrate (Lopressor)50 Mg Tab25 Mg PO BID #30 TAB Ref 0 Prov:Sherman Felix MD 10/22/16 Disposition: 01 DISCHARGE HOME Condition: Stable Sherman Felix MD Oct 21, 2016 23:19
[2016-10-21 23:42] LABS: AUTOMATED NEUTROPHIL # 3.8 TH/MM3 (1.8-7.7); BASOPHIL % 0.5 % (0.0-2.0); EOSINOPHIL # 0.2 TH/MM3 (0-0.4); HEMATOCRIT 43.8 % (39.0-51.0); HEMO FLAGS DIFF FINAL; LYMPH % 27.2 % (9.0-44.0); LYMPHOCYTE # 1.7 TH/MM3 (1.0-4.8); MEAN CELL VOLUME 89.3 FL (80.0-100.0); MEAN CORPUSCULAR HEMOGLOBIN 30.4 PG (27.0-34.0); MEAN CORPUSCULAR HGB CONC 34.1 % (32.0-36.0); MONO % 8.3 % (0.0-8.0); PLATELET COUNT 188 TH/MM3 (150-450); RED CELL DISTRIBUTION WIDTH 13.8 % (11.6-17.2); WHITE BLOOD COUNT 6.2 TH/MM3 (4.0-11.0)
[2016-10-21 23:49] LABS: MAGNESIUM 2.1 MG/DL (1.5-2.5); POTASSIUM 3.5 MEQ/L (3.5-5.1)
[2016-10-22] MEDS ORDERED: METO-309 PO (00:12)
[2016-10-22 00:28] VITALS: BP 118/74
--- NOTE | 2016-10-22 22:45 | EKG ---
Date Performed: 10/21/2016 Time Performed: 22:59:25 PTAGE: 66 years EKG: Sinus rhythm LEFT VENTRICULAR HYPERTROPHY AND ST-T CHANGE ABNORMAL ECG INTERPRETATION BASED ON A DEFAULT AGE OF 6 0 YEARS PREVIOUS TRACING : 10/19/2016 07.35 DOCTOR: Kedar Templeton Interpretating Date/Time 10/22/2016 22:42:40
== END 2016-10-22 00:39 | disposition home or self-care (01) ==
LOC: NEPC 22:54
DX: I48.0 Paroxysmal atrial fibrillation (principal); R94.31 Abnormal electrocardiogram [ECG] [EKG]; E78.00 Pure hypercholesterolemia, unspecified; E07.9 Disorder of thyroid, unspecified; Z85.828 Personal history of other malignant neoplasm of skin; Z86.79 Personal history of other diseases of the circulatory system; Z87.448 Personal history of other diseases of urinary system; Z87.39 Personal history of other diseases of the musculoskeletal system and connective tissue
CPT/HCPCS: 80048; 83735; 85025; 93005

== ENCOUNTER 2016-11-13 19:46 | Inpatient (IN) | payer BC ==
[~2016-11-13] VITALS: Ht 180.3 cm; Wt 84.0 kg
[~2016-11-13 19:46] MED LIST changes: +METO-309 PO
[2016-11-13 19:48] VITALS: BP 150/80; PULSE 126; RESP 18; TEMP 98; O2SAT 98
[2016-11-13 20:07] VITALS: BP 131/80; PULSE 130; RESP 22; O2SAT 96
[2016-11-13] MEDS ORDERED: DILTIAZEM HCL 25 MG/5 ML VIAL IVP ONE (20:15)
--- NOTE | 2016-11-13 20:39 | PD ---
HPI Chief Complaint: Cardiac Complaint Time Seen by Provider: 20:34 Travel History International Travel<30 days: No Contact w/Intl Traveler<30days: No Traveled to known affect area: No History of Present Illness HPI 66-year-old male that presents to the ED for evaluation of rapid heart rate. Per patient he has a history of a history of fibrillation that was recently diagnosed just 3 weeks ago. Patient was seen here for this. Patient apparently just moved from [place] and on the he came to the hospital because he was having sensation of palpitations. Patient was found to have A. fib with RVR. Patient was admitted and had a full workup and given medications. Patient was here about a week ago and seen by Dr. Felix for evaluation of similar. Patient was given a higher dose of his metoprolol to use. Patient states that after that he felt fine. Patient follows with Dr. Duarte is his doctor. Per patient since 5:00 today she's been having episodes of palpitations. Per patient he was doing was watching TV and golf and then he noticed that he was started having the palpitations. He denies any other medical problems with the high cholesterol. He has been compliant with his metoprolol. Per patient he was told that if this ever happens to take a double dose of his metoprolol which she did and he still has the high HR. per patient he checked it at home was 140. Currently is 130s. He denies any fevers chills or sweats. No chest pain or shortness of breath. He does state that he feels somewhat dizzy. Per patient he feels like his heart is racing. PFSH Past Medical History Atrial Fibrillation: Yes Heart Rhythm Problems: Yes (palpitations, AFIB) Cancer: Yes (skin cancer removal) Cardiovascular Problems: Yes (A FIB ) High Cholesterol: Yes Genitourinary: Yes Musculoskeletal: Yes (torn meniscus & rotator cuff surgery) Neurologic: No Respiratory: No Thyroid Disease: Yes Tetanus Vaccination: < 5 Years Social History Alcohol Use: Yes (SOCIAL) Tobacco Use: No Substance Use: No Allergies-Medications (Allergen,Severity, Reaction): Coded Allergies: No Known Allergies (Unverified , 11/13/16) Reported Meds & Prescriptions Reported Meds & Active Scripts Active Metoprolol Tartrate 25 Mg Tab 12.5 Mg PO BID 30 Days [Aspirin Ec] 325 MG Tabec 325 Mg PO DAILY Reported Pravastatin 40 Mg Tab 40 Mg PO DAILY Levothyroxine (Levothyroxine Sodium) 100 Mcg Tab 100 Mcg PO DAILY Flomax (Tamsulosin HCl) 0.4 Mg Cap 0.4 Mg PO HS Review of Systems General / Constitutional: No: Fever, Chills, Weight Gain, Weight Loss, Other Eyes: No: Diploplia, Blurred Vision, Photophobia, Drainage, Redness, Foreign Body Sensation, Pain, Tearing, Blind Spots, Visual changes, Blindness, Other HENT: No: Headaches, Vertigo, Lightheadedness, Sore Throat, Rhinitis, Rhinorrhea, Congestion, Nosebleed, Neck Stiffness, Neck Pain, Masses, Gingival Bleeding, Dental Difficulties, Ear Discharge, Earache, Other Cardiovascular: Positive: Palpitations, Irregular Rhythm, Tachycardia, No: Chest Pain or Discomfort, Diaphoresis, Syncope, Dyspnea on exertion, Varicosities, Edema, Cyanosis, Varicosities, Phlebitis, Claudication, Other Respiratory: No: Cough, Shortness of Breath, Wheezing, Sneezing, Orthopnea, Hemoptysis, Stridor, Night Sweats, Pleuritic Pain, Other Gastrointestinal: No: Nausea, Vomiting, Diarrhea, Abdominal Pain, Hematemesis, Hematochezia, Constipation, Changes in Bowel Habits, Indigestion, Dysphagia, Loss of Appetite, Other Genitourinary: No: Urgency, Frequency, Dysuria, Nocturia, Hematuria, Decreased Urinary Output, Oliguria, Hesitancy, Dribbling, Incontinence, Pelvic Pain, Flank Pain, Dyspareunia, Discharge, Dysmenorrhea, Menorrhagia, Metorrhagia, Vaginal Bleeding, Other Musculoskeletal: No: Myalgias, Arthralgias, Limited ROM, Weakness, Cramping, Edema, Pain, Atrophy, Other Skin: No Rash, No Itching, No Dryness, No Lumps, No Hives, No Change in Pigmentation, No Change in nails, No Alopecia, No Lesions, No Breast Lumps, No Breast Tenderness, No Breast Swelling, No Other Neurologic: Positive: Dizziness, No: Weakness, Syncope, Focal Abnormalities, Coordination Problem, Tremor, Ataxia, Headache, Change in Mentation, Slurred Speech, Paresthesia, Incontinence, Seizures, Sensory Disturbance, Other Psychiatric: No: Anxiety, Depression, Suicidal Ideations, Disorder of Thought, Mood Disorder, Substance Abuse, Homicidal Ideation, Other Endocrine: No: Heat Intolerance, Cold Intolerance, Polyuria, Polydipsia, Other Hematologic/Lymphatic: No: Easy Bruising, Lymph Node Enlargement, Other Physical Exam Narrative GENERAL: SKIN: Warm and dry. HEAD: Atraumatic. Normocephalic. EYES: Pupils equal and round 4 mm reactive to light and accommodation. No scleral icterus. No injection or drainage. ENT: No nasal bleeding or discharge. Mucous membranes pink and moist. Tongue is midline. No uvula deviation. NECK: Trachea midline. No JVD. CARDIOVASCULAR: Irregular tachycardic rate and rhythm. No murmurs, S3 or S4. RESPIRATORY: No accessory muscle use. Clear to auscultation. Breath sounds equal bilaterally. GASTROINTESTINAL: Abdomen soft, non-tender, nondistended. Hepatic and splenic margins not palpable. MUSCULOSKELETAL: Extremities without clubbing, cyanosis, or edema. No obvious deformities. NEUROLOGICAL: Awake and alert. No obvious cranial nerve deficits. Motor grossly within normal limits. Five out of 5 muscle strength in the arms and legs. Normal speech. PSYCHIATRIC: Appropriate mood and affect; insight and judgment normal. Data Data Last Documented VS Vital Signs Date Time Temp Pulse Resp B/P Pulse Ox O2 Delivery O2 Flow Rate FiO2 11/13/16 21:42 63 18 116/72 97 Room Air 11/13/16 19:48 98.0 Orders Electrocardiogram (11/13/16 20:14) Basic Metabolic Panel (Bmp) (11/13/16 20:14) Ckmb (Isoenzyme) Profile (11/13/16 20:14) Complete Blood Count With Diff (11/13/16 20:14) Magnesium (Mg) (11/13/16 20:14) Prothrombin Time / Inr (Pt) (11/13/16 20:14) Act Partial Throm Time (Ptt) (11/13/16 20:14) Troponin I (11/13/16 20:14) Ecg Monitoring (11/13/16 20:14) Iv Access Insert/Monitor (11/13/16 20:14) Oximetry (11/13/16 20:14) Thyroid Stimulating Hormone (11/13/16 20:14) Diltiazem Inj (Cardizem Inj) (11/13/16 20:15) Vital Signs (Adult) Q15MX4,Q4H (11/13/16 20:46) Cardiac Rhythm KODY.Q8H (11/13/16 20:46) ^ Notify Dr: Other (11/13/16 20:46) Diltiazem Inj (Cardizem Inj) (11/13/16 21:00) CKMB (11/13/16 20:25) CKMB% (11/13/16 20:25) Free Thyroxine (T4) (11/13/16 21:49) Electrocardiogram (11/13/16 ) Admit Order (Ed Use Only) (11/13/16 22:10) Labs Laboratory Tests Test 11/13/16 20:25 White Blood Count 6.3 TH/MM3 Red Blood Count 5.16 MIL/MM3 Hemoglobin 15.8 GM/DL Hematocrit 45.7 % Mean Corpuscular Volume 88.6 FL Mean Corpuscular Hemoglobin 30.6 PG Mean Corpuscular Hemoglobin 34.5 % Concent Red Cell Distribution Width 13.8 % Platelet Count 193 TH/MM3 Mean Platelet Volume 9.2 FL Neutrophils (%) (Auto) 55.7 % Lymphocytes (%) (Auto) 33.2 % Monocytes (%) (Auto) 8.5 % Eosinophils (%) (Auto) 2.0 % Basophils (%) (Auto) 0.6 % Neutrophils # (Auto) 3.5 TH/MM3 Lymphocytes # (Auto) 2.1 TH/MM3 Monocytes # (Auto) 0.5 TH/MM3 Eosinophils # (Auto) 0.1 TH/MM3 Basophils # (Auto) 0.0 TH/MM3 CBC Comment DIFF FINAL Differential Comment Prothrombin Time 10.9 SEC Prothromb Time International 1.0 RATIO Ratio Activated Partial 27.9 SEC Thromboplast Time Sodium Level 141 MEQ/L Potassium Level 3.9 MEQ/L Chloride Level 106 MEQ/L Carbon Dioxide Level 27.0 MEQ/L Anion Gap 8 MEQ/L Blood Urea Nitrogen 14 MG/DL Creatinine 0.87 MG/DL Estimat Glomerular Filtration 88 ML/MIN Rate Random Glucose 100 MG/DL Calcium Level 8.7 MG/DL Magnesium Level 2.2 MG/DL Total Creatine Kinase 197 U/L Creatine Kinase MB 4.4 NG/ML Troponin I 0.09 NG/ML Free Thyroxine 1.12 NG/DL Thyroid Stimulating Hormone 5.540 uIU/ML 3rd Gen [facility] Medical Decision Making Medical Screen Exam Complete: Yes Emergency Medical Condition: Yes Medical Record Reviewed: Yes Interpretation(s) CBC & BMP Diagram 11/13/16 20:25 Troponin was 0.9. TSH of 5 CK within normal limits. EKG shows atrial fibrillation with no sign of acute ischemia or arrhythmia read by me and attending. Differential Diagnosis Atrial fibrillation with RVR versus patient fibrillation versus hyperthyroidism versus failed outpatient treatment Narrative Course 66-year-old male that presents to the ED for evaluation of heart palpitations. Patient was properly examined and was found to have signs and symptoms consistent with appears to be at this time A. fib and RVR. Patient will be given Cardizem. IV was started labs are normal. Labs showed A. fib with RVR as well as elevated troponin and elevated TSH. Patient does have a history of hypothyroidism and takes levothyroxine. Case was discussed in my attending Dr. Dave who was made aware of all findings and look at the medical records. He recommends admission for NSTEMI workup as well as for evaluation of the A. fib. After 1 dose of Cardizem patient's heart rate came down to the 60s and 70s and feels improved. MEDARDO was paged and Dr. Patel who agrees to admission. She recommends that I speak with cardiology. I spoke with Dr. Michelle manager performance traveling missionary for Dr. Petty and recommends no heparin at this time and rather start him on lovenox. Procedures EKG Prior to Arrival: No Diagnosis Primary Impression: NSTEMI (non-ST elevated myocardial infarction) Additional Impressions: Atrial fibrillation with RVR Hypothyroidism Qualified Code: E03.9 - Hypothyroidism, unspecified type Elevated troponin Admitting Information Admitting Physician Requests: Admit Matty Nieto Nov 13, 2016 20:39
[2016-11-13] MEDS ORDERED: DILTIAZEM INJ 125 MG in SODIUM CHLORIDE 0.9% INJ 100 ML IV SCH (21:00)
[2016-11-13 21:01] LABS: AUTOMATED NEUTROPHIL # 3.5 TH/MM3 (1.8-7.7); BASOPHIL % 0.6 % (0.0-2.0); EOSINOPHIL # 0.1 TH/MM3 (0-0.4); HEMATOCRIT 45.7 % (39.0-51.0); HEMO FLAGS DIFF FINAL; LYMPH % 33.2 % (9.0-44.0); LYMPHOCYTE # 2.1 TH/MM3 (1.0-4.8); MEAN CELL VOLUME 88.6 FL (80.0-100.0); MEAN CORPUSCULAR HEMOGLOBIN 30.6 PG (27.0-34.0); MEAN CORPUSCULAR HGB CONC 34.5 % (32.0-36.0); MONO % 8.5 % (0.0-8.0); NEUT % 55.7 % (16.0-70.0); PLATELET COUNT 193 TH/MM3 (150-450); RED BLOOD COUNT 5.16 MIL/MM3 (4.50-5.90); RED CELL DISTRIBUTION WIDTH 13.8 % (11.6-17.2); WHITE BLOOD COUNT 6.3 TH/MM3 (4.0-11.0)
[2016-11-13 21:13] VITALS: BP 118/71; PULSE 62; RESP 20; O2SAT 96
[2016-11-13 21:13] LABS: APTT (PATIENT) 27.9 SEC (24.3-30.1); PROTHROMBIN TIME - PATIENT 10.9 SEC (9.8-11.6)
[2016-11-13 21:26] LABS: ANION GAP 8 MEQ/L (5-15); BLOOD UREA NITROGEN 14 MG/DL (7-18); CHLORIDE 106 MEQ/L (98-107); GLOMERULAR FILTRATION RATE 88 ML/MIN (>89); MAGNESIUM 2.2 MG/DL (1.5-2.5); POTASSIUM 3.9 MEQ/L (3.5-5.1); SODIUM (NA) 141 MEQ/L (136-145)
[2016-11-13 21:36] LABS: CREATINE KINASE 197 U/L (39-308)
[2016-11-13 21:42] VITALS: BP 116/72; PULSE 63; RESP 18; O2SAT 97
[2016-11-13 21:48] LABS: CKMB 4.4 NG/ML (0.5-3.6)
[2016-11-13] MEDS ORDERED: HEPARIN SODIUM - IV 10,000 UNITS/10 ML VIAL IV ONE (22:15)
[2016-11-13] MEDS ORDERED: HEPARIN-D5W INJ 250 ML IV SCH (22:15)
--- NOTE | 2016-11-13 22:27 | HHI.HP ---
HPI Service [facility] Primary Care Physician Radhames Petty MD Admission Diagnosis NSTEMI, atrial fibrillation Diagnoses: (1) Atrial fibrillation with RVR Diagnosis: Principal (2) Elevated troponin Diagnosis: Principal (3) Hypothyroidism Diagnosis: Principal Travel History International Travel<30 Days: No Contact w/Intl Traveler <30 Da: No Traveled to Known Affected Are: No History of Present Illness This is a 66-year-old male with a PMH of recently diagnosed A. fib and Hypothyroidism who presented to the ER with complaints of palpitation and elevated heart rate. Denies chest pain or SOB. Similar symptoms approx 3wks ago, admitted 10/18-10/1716 for New Onset A-fib w/ RVR, trop 0.51 at that time, s/ p CTA Pulm negative for PE and Cardiac Cath by Dr. Petty on 10/19/16 w/ normal coronary arteries, d/c'd home on Metoprolol 12.5mg bid and ASA 325mg qd. Presented to ER on 10/21/16 for palpitations w/ HR 150 s/p Metoprolol 25mg PO x1 in ER w/ normalization, d/c'd w/ new prescription for increased dosage of Metoprolol 25mg bid. Seen in office by Dr. Petty since then w/ no further changes in medications. Today, pt noted acute onset of palpitations, check pulse at home and noted to be in 140's. On arrival, BP 150/80, HR 126, O2 sat 90% on RA, Afebrile. Chemistry at baseline. Troponin 0.09. S/p Cardizem IV x1 w/ HR 80-90's. Dr. Perez consulted by ER physician, recommended Lovenox. Remains in A-fib at this time, now rate controlled. Review of Systems Except as stated in HPI: all other systems reviewed are Neg ROS: 14 point review of systems otherwise negative. Past Family Social History Past Medical History PMH: A. fib and Hypothyroidism Past Surgical History PAST SURGICAL HISTORY: Knee Surgery, Shoulder Surgery Allergies: Coded Allergies: No Known Allergies (Unverified , 11/13/16) Family History PAST FAMILY HISTORY: Reviewed. No h/o DM or CAD Social History PAST SOCIAL HISTORY: Occasional alcohol. Negative for tobacco or drugs. Physical Exam Vital Signs Vital Signs Date Time Temp Pulse Resp B/P Pulse Ox O2 Delivery O2 Flow Rate FiO2 11/13/16 21:42 63 18 116/72 97 Room Air 11/13/16 21:13 62 20 118/71 96 Room Air 11/13/16 20:07 132 96 Room Air 11/13/16 20:07 130 22 131/80 96 Room Air 11/13/16 19:48 98.0 126 18 150/80 98 Room Air Physical Exam PE: GENERAL: Very pleasant middle-aged white male in no acute distress. HEENT: PERRLA, EOMI. No scleral icterus or conjunctival pallor. No lid lag or facial droop. CARDIOVASCULAR: Irregularly irregular, in A. fib, HR 70-90's. No obvious murmurs to auscultation. No chest tenderness to palpation. RESPIRATORY: No obvious rhonchi or wheezing. Clear to auscultation. Breath sounds equal bilaterally. GASTROINTESTINAL: Abdomen soft, non-tender, nondistended. BS normal. MUSCULOSKELETAL: Extremities without clubbing, cyanosis, or edema. No obvious deformities. NEUROLOGICAL: Awake, alert and oriented x4. No focal neurologic deficits. Moving both upper and lower extremities spontaneously. Laboratory Laboratory Tests Test 11/13/16 20:25 White Blood Count 6.3 Red Blood Count 5.16 Hemoglobin 15.8 Hematocrit 45.7 Mean Corpuscular Volume 88.6 Mean Corpuscular Hemoglobin 30.6 Mean Corpuscular Hemoglobin 34.5 Concent Red Cell Distribution Width 13.8 Platelet Count 193 Mean Platelet Volume 9.2 Neutrophils (%) (Auto) 55.7 Lymphocytes (%) (Auto) 33.2 Monocytes (%) (Auto) 8.5 Eosinophils (%) (Auto) 2.0 Basophils (%) (Auto) 0.6 Neutrophils # (Auto) 3.5 Lymphocytes # (Auto) 2.1 Monocytes # (Auto) 0.5 Eosinophils # (Auto) 0.1 Basophils # (Auto) 0.0 CBC Comment DIFF FINAL Differential Comment Prothrombin Time 10.9 Prothromb Time International 1.0 Ratio Activated Partial 27.9 Thromboplast Time Sodium Level 141 Potassium Level 3.9 Chloride Level 106 Carbon Dioxide Level 27.0 Anion Gap 8 Blood Urea Nitrogen 14 Creatinine 0.87 Estimat Glomerular Filtration 88 Rate Random Glucose 100 Calcium Level 8.7 Magnesium Level 2.2 Total Creatine Kinase 197 Creatine Kinase MB 4.4 Troponin I 0.09 Free Thyroxine 1.12 Thyroid Stimulating Hormone 5.540 3rd Gen Result Diagram: 11/13/16202411/13/162024 Assessment and Plan Problem List: (1) Atrial fibrillation with RVR ICD Code: I48.91 Status: Acute (2) Elevated troponin ICD Code: R79.89 Status: Acute (3) Hypothyroidism ICD Code: E03.9 Status: Acute Assessment and Plan A/P: 1. A-fib w/ RVR: recent diagnosis of A-fib on last admit 10/18/16 w/ recurrent episodes of A-fib w/ RVR, Metoprolol increased to 25mg bid from 12.5mg bid on last visit to ER 10/21/16. On arrival, noted to be in A-fib w/ RVR, HR 130's s/ p Cardizem IV x1 dose, remains in A-fib however now rate-controlled. Admit to [facility] for closer monitoring, Cardizem gtt if needed. Follows w/ Dr. Petty, Dr. Perez consulted by ER physician, recommended Lovenox. Continue ASA 325mg. 2. Elevated Trop: Trop 0.09, likely related to A-fib w/ RVR, s/p Cardiac Cath 10/19/[address] Petty w/ normal coronary arteries, NSTEMI unlikely. Check serial cardiac enzymes for trend. Lovenox as above, ASA. Resume home Metoprolol. NTG/Morphine prn. 3. Hypothyroid: TSH 5.540, Free T4 1.12. Resume home Synthroid. 4. DVT Prophylaxis: Lovenox 5. Social work for d/c planning as needed. 6. Case discussed w/ ER physician at length. Physician Certification 2 Midnight Certification Type: Admission for Inpatient Services Order for Inpatient Services The services are ordered in accordance with Medicare regulations or non- Medicare payer requirements, as applicable. In the case of services not specified as inpatient-only, they are appropriately provided as inpatient services in accordance with the 2-midnight benchmark. Estimated LOS (days): 2 days is the estimated time the patient will need to remain in the hospital, assuming treatment plan goals are met and no additional complications. Post-Hospital Plan: Not yet determined Problem Qualifiers (1) Hypothyroidism: Qualified Code: E03.9 - Hypothyroidism, unspecified type Jasmin Patel MD Nov 13, 2016 22:27
[2016-11-13] MEDS ORDERED: MORPHINE SULFATE 4 MG/ML INJ IV PRN (22:30)
[2016-11-13] MEDS ORDERED: ACETAMINOPHEN 325 MG TAB PO PRN (22:30)
[2016-11-13] MEDS ORDERED: ONDANSETRON HCL 4 MG/2 ML VIAL IVP PRN (22:30)
[2016-11-13] MEDS ORDERED: BISACODYL 10 MG SUPP PR PRN (22:30)
[2016-11-13] MEDS ORDERED: SODIUM CHLOR 0.9% 1000 ML INJ 1,000 ML IV ONE (22:30)
[2016-11-13] MEDS ORDERED: SODIUM CHLORIDE 0.9% FLUSH 5 ML FLUSH FLUSH PRN (22:30)
[2016-11-13] MEDS ORDERED: NITROGLYCERIN 2% OINT 1 GM PACKET TOPICAL PRN (22:30)
[2016-11-13] MEDS ORDERED: ACETAMINOPHEN/HYDROcodone 325 MG/5 MG TAB PO PRN (22:30)
[2016-11-13] MEDS ORDERED: ENOXAPARIN SODIUM 80 MG/0.8 ML SYRINGE SQ ONE (22:45)
[2016-11-13 23:02] VITALS: BP 131/86; PULSE 57; RESP 18; O2SAT 99
[2016-11-14] VITALS (10 sets, daily range): BP systolic 115–140; BP diastolic 68–73; PULSE 53–72; RESP 14–20; TEMP 97.3–98; O2SAT 98–99
[2016-11-14] MEDS ORDERED: HEPARIN SODIUM - IV 10,000 UNITS/10 ML VIAL IV PRN ×2 (04:15)
[2016-11-14] MEDS ORDERED: LEVOTHYROXINE SODIUM 100 MCG TAB PO SCH (06:00)
[2016-11-14] MEDS ORDERED: ASPIRIN EC 325 MG TABEC PO SCH (09:00)
[2016-11-14] MEDS ORDERED: METOPROLOL TARTRATE 25 MG TAB PO SCH (09:00)
[2016-11-14] MEDS ORDERED: SODIUM CHLORIDE 0.9% FLUSH 5 ML FLUSH FLUSH SCH (09:00)
[2016-11-14] MEDS ORDERED: PRAVASTATIN SOD 40 MG TAB PO SCH (09:00)
[2016-11-14] MEDS ORDERED: APIXABAN 5 MG TABLET PO SCH (10:15)
--- NOTE | 2016-11-14 10:49 | MB ---
cc: DARION GOLDEN MD DATE OF CONSULTATION: 11/14/2016 REASON FOR CONSULTATION: Atrial fibrillation, abnormal troponin. HISTORY OF PRESENT ILLNESS The patient is a very pleasant 66-year-old gentleman who resides in [place] but is here over the winter and who is seeing Dr. Petty for a history of abnormal troponin and atrial fibrillation. He had a recent normal cardiac catheterization and the abnormal troponin was felt to be due to his rapid ventricular response, atrial fibrillation. He has had several intermittent episodes of his rapid atrial fibrillation. The patient believes this is his third or fourth. He was admitted, started on Cardizem, quickly converted and is back to normal sinus rhythm. He is asymptomatic and hoping to be discharged home. He denies chest pain, shortness breath, lightheadedness or dizziness, just notes his palpitations when he is in his rapid atrial fibrillation. PAST MEDICAL HISTORY Hypertension. Hyperlipidemia CURRENT MEDICATIONS 1. Flomax. 2. Lopressor 12.5 mg daily. 3. Pravachol 40 mg daily 4. Aspirin 325 milligrams daily. ALLERGIES: NO KNOWN DRUG ALLERGIES. PHYSICAL EXAMINATION: VITAL SIGNS: Afebrile. Pulse 64, respiratory 20, blood pressure 140/73, sating 98% on room air. General: Very pleasant well-appearing gentleman in no distress. Neck: No JVD. Lungs: Clear auscultation bilaterally. Cardiovascular: Regular rate rhythm. No murmurs appreciated. Abdomen: Benign. Extremities: No edema. Sodium 141, potassium 3.9, chloride 106, bicarb 27, BUN 14, creatinine 0.87, glucose 100, troponin 0.09, 0.11, TSH was slightly elevated. INR is 1.0, white count 6.3, hematocrit 45.7, platelet count 193. EKG shows atrial fibrillation, rate of [address]-T changes. Subsequent EKG shows a rate of 71. Current telemetry shows sinus rhythm. IMPRESSION Paroxysmal atrial fibrillation. The patient has had several episodes of paroxysmal atrial fibrillation and it does seem correlated with his fairly mild alcohol use. I discussed all the options at length and we have decided that he will begin Eliquis given his non zero stroke risk with risk factors of hypertension and age. I will increase his metoprolol to 50 mg b.i.d. which hopefully will help his heart rate should he revert back into atrial fibrillation and he will also refrain from alcohol use. I did discuss that long-term he likely would benefit from atrial fibrillation and having him on Eliquis could help expedite that procedure should he have another episode of atrial fibrillation while he is in [place]. His abnormal troponin is likely due to his left ventricular rate, particularly given the normal cardiac catheterization he underwent last month. He will follow up with Dr. Petty this week, and any medication adjustments can be made at that time. Certainly there are a number of strategies managing paroxysmal atrial fibrillation of this nature and even an antiarrhythmic such as propafenone could be considered given the normal coronaries. I will defer these type of decisions to Dr. Petty. Thank again for the opportunity to participate this patient's care. MD HELDER Montes/NIDIA /10:09 AM /10:39 AM
[2016-11-14 11:01] LABS: AUTOMATED NEUTROPHIL # 3.3 TH/MM3 (1.8-7.7); BASOPHIL % 0.8 % (0.0-2.0); EOSINOPHIL # 0.1 TH/MM3 (0-0.4); EOSINOPHIL % 1.3 % (0.0-4.0); HEMATOCRIT 44.7 % (39.0-51.0); HEMO FLAGS DIFF FINAL; LYMPHOCYTE # 1.1 TH/MM3 (1.0-4.8); MEAN CELL VOLUME 89.3 FL (80.0-100.0); MEAN CORPUSCULAR HEMOGLOBIN 30.1 PG (27.0-34.0); MEAN CORPUSCULAR HGB CONC 33.7 % (32.0-36.0); MONO % 7.4 % (0.0-8.0); NEUT % 67.5 % (16.0-70.0); PLATELET COUNT 186 TH/MM3 (150-450); RED CELL DISTRIBUTION WIDTH 14.2 % (11.6-17.2); WHITE BLOOD COUNT 4.9 TH/MM3 (4.0-11.0)
[2016-11-14 11:27] LABS: ALKALINE PHOSPHATASE 61 U/L (45-117); ALT (GPT) 20 U/L (12-78); ANION GAP 8 MEQ/L (5-15); AST (GOT) 16 U/L (15-37); BICARBONATE 28.5 MEQ/L (21.0-32.0); BLOOD UREA NITROGEN 13 MG/DL (7-18); CHLORIDE 105 MEQ/L (98-107); GLOMERULAR FILTRATION RATE 86 ML/MIN (>89); POTASSIUM 4.1 MEQ/L (3.5-5.1); SODIUM (NA) 141 MEQ/L (136-145); TOTAL BILIRUBIN ADULT 0.5 MG/DL (0.2-1.0)
[2016-11-14] MEDS ORDERED: METO-309 PO (11:55)
[2016-11-14] MEDS ORDERED: APIX5TAB PO (11:55)
--- NOTE | 2016-11-14 12:07 | HHI.PR ---
Subjective Remarks f/u afib afib but rate controlled over night, denies cp or sob, no palpitations, cleared by cardiology Objective Vitals Vital Signs Date Time Temp Pulse Resp B/P Pulse Ox O2 Delivery O2 Flow Rate FiO2 11/14/16 11:00 98.0 62 20 115/69 98 11/14/16 11:00 58 11/14/16 10:00 61 11/14/16 09:00 64 11/14/16 08:00 58 11/14/16 07:00 55 11/14/16 07:00 97.8 65 20 140/73 98 11/14/16 06:00 53 11/14/16 05:00 53 11/14/16 04:00 53 11/14/16 03:00 97.3 56 14 118/71 99 11/14/16 03:00 53 11/14/16 02:08 72 18 117/68 99 Room Air 11/13/16 23:02 57 18 131/86 99 Room Air 11/13/16 21:42 63 18 116/72 97 Room Air 11/13/16 21:13 62 20 118/71 96 Room Air 11/13/16 20:07 132 96 Room Air 11/13/16 20:07 130 22 131/80 96 Room Air 11/13/16 19:48 98.0 126 18 150/80 98 Room Air I/O 11/13/16 11/13/16 11/13/16 11/14/16 11/14/16 11/14/16 07:00 15:00 23:00 07:00 15:00 23:00 Intake Total 540 ml Balance 540 ml Intake Oral 240 ml IV Total 300 ml Result Diagram: 11/14/16 1028 11/14/16 1028 Objective Remarks Not in distress, well-nourished, looks stated age PERRL, pink conjunctiva without injection, anicteric Nose without bleeding, airway patent, oropharynx clear Supple neck, no masses or thyromegaly, trachea midline Normal rate and regular rhythm, no murmurs gallops or rubs appreciated. Clear to auscultation and symmetric bilaterally, normal respiratory effort. Normal bowel sounds, soft, non-tender, nondistended, no guarding. Extremities without clubbing, cyanosis, or edema. No rash of generalized distribution. Skin is warm and dry. AAO x3, no cranial nerve deficits, moves all 4 extremities, no focal neurologic deficits Normal mood, appropriate affect A/P Problem List: (1) Atrial fibrillation with RVR ICD Code: I48.91 Status: Acute (2) Elevated troponin ICD Code: R79.89 Status: Acute (3) Hypothyroidism ICD Code: E03.9 Status: Acute Assessment and Plan 1. A-fib w/ RVR: recent diagnosis of A-fib on last admit 10/18/16 w/ recurrent episodes of A-fib w/ RVR, Metoprolol increased to 50 mg twice a day, started on eliquis per cardiology. Mild troponin elevation, but patient recently had a heart catheterization. 2 by cardiology for discharge to follow-up with Dr. harrison. 2. Elevated Trop: Trop 0.09, likely related to A-fib w/ RVR, s/p Cardiac Cath 10/19/[address] Harrison w/ normal coronary arteries, NSTEMI unlikely. Continue aspirin, continue metoprolol at a higher dose. 3. Hypothyroid: TSH 5.540, Free T4 1.12. Resume home Synthroid. 4. DVT Prophylaxis: Lovenox Discharge patient to home Condition on discharge: Improved Regular Diet as tolerated Ad Melissa activity Rx written: Eliquis 5 mg twice a day Nexium metoprolol 50 mg twice a day Follow-up with cardiology in one week Total discharge time: 25minutes Problem Qualifiers (1) Hypothyroidism: Qualified Code: E03.9 - Hypothyroidism, unspecified type Phani Perkins MD Nov 14, 2016 12:07
[2016-11-14] MEDS ORDERED: PILL SPLITTER OTHER PRN (12:15)
[2016-11-14] MEDS ORDERED: METOPROLOL TARTRATE 25 MG TAB PO ONE (12:15)
--- NOTE | 2016-11-14 13:56 | EKG ---
Date Performed: 11/13/2016 Time Performed: 22:10:20 PTAGE: 66 years EKG: ATRIAL FIBRILLATION MINIMAL VOLTAGE CRITERIA FOR LVH, CONSIDER NORMAL VARIANT Compared to p rior tracing no significant change ABNORMAL RHYTHM ECG PREVIOUS TRACING : 11/13/2016 21.02 DOCTOR: Sandoval Perez Interpretating Date/Time 11/14/2016 13:54:58
--- NOTE | 2016-11-14 13:56 | EKG ---
Date Performed: 11/13/2016 Time Performed: 21:02:26 PTAGE: 66 years EKG: ATRIAL FIBRILLATION Compared to previous tracing, atrial fibrillation has replaced Sinus rh [facility] [place] ABNORMAL RHYTHM ECG PREVIOUS TRACING : 10/21/2016 22.59 DOCTOR: Sandoval Perez Interpretating Date/Time 11/14/2016 13:54:45
[2016-11-14] MEDS ORDERED: TAMSULOSIN HCL 0.4 MG CAP PO SCH (21:00)
[2016-11-14] MEDS ORDERED: METOPROLOL TARTRATE 50 MG TAB PO SCH (21:00)
== END 2016-11-14 12:32 | disposition home or self-care (01) | DRG 310 ==
LOC: NEPE 19:46 → NEDA 22:12 → HCPC 11-14 01:50
PROVIDERS: ADMIT Hospitalist; ATTEND Hospitalist
DX: I48.0 Paroxysmal atrial fibrillation (principal); I10 Essential (primary) hypertension; R74.8 Abnormal levels of other serum enzymes; E03.9 Hypothyroidism, unspecified; E78.5 Hyperlipidemia, unspecified; Z85.828 Personal history of other malignant neoplasm of skin
CPT/HCPCS: 80048; 80053; 82550; 82552; 83735; 84439; 84443; 84484; 85025; 85610; 85730; 93005; 96374; J1650; J7030